=== PATIENT | female | born 1995 | race Two or more races ===

== ENCOUNTER 2017-01-07 07:41 | Inpatient (IN) | payer OTHER ==
[2017-01-07 07:59] VITALS: BMI 33.2
[2017-01-07] MEDS ORDERED: OXYTOCIN IN LR 500 ML IV ONE ×2 (08:13→08:37)
[2017-01-07] MEDS ORDERED: PUMP TUBING ONE (08:36)
[2017-01-07] MEDS ORDERED: IV START KIT ONE (08:36)
[2017-01-07] MEDS ORDERED: LIDOCAINE 1% (PRES FREE) 30 ML VIAL ONE (08:36)
[2017-01-07] MEDS ORDERED: LIDOCAINE Viscous 2% 15 ML UDCUP ONE (08:36)
[2017-01-07] MEDS ORDERED: OXYTOCIN 10 UNITS/ML VIAL ONE (08:36)
[2017-01-07] MEDS ORDERED: LACTATED RINGERS 1,000 ML ONE ×2 (08:36→10:12)
[2017-01-07] MEDS ORDERED: MINERAL OIL 25 ML BOT ONE (08:36)
[2017-01-07 09:44] LABS: HEMATOCRIT 40.5 % (37.0-47.0); HEMOGLOBIN 13.8 gm/l (12.0-16.0); MEAN CELL VOLUME 89.2 fl (81.0-99.0); MEAN CORPUSCULAR HEMOGLOBIN 30.4 pg (27.0-31.0); MEAN CORPUSCULAR HGB CONC 34.1 g/dl (33.0-37.0); RED CELL DISTRIBUTION WIDTH 12.5 % (11.5-14.5)
[2017-01-07] MEDS: LACTATED RINGERS 1,000 ML IV SCH ×3 (09:56→13:55)
[2017-01-07] MEDS ORDERED: FENTANYL/ROPIVACAINE EPIDURAL 250 ML EP ONE (10:12)
[2017-01-07] MEDS ORDERED: EPIDURAL PUMP SET ONE (10:12)
[2017-01-07] MEDS ORDERED: EPIDURAL PROCEDURE TRAY ONE (10:17)
[2017-01-07] MEDS ORDERED: BUPIVACAINE 0.25% (PRES FREE) 30 ML VIAL ONE (10:17)
[2017-01-07] MEDS ORDERED: EPHEDRINE SULFATE 50 MG/ML 1ML VIAL IV PRN (10:20)
[2017-01-07] MEDS ORDERED: DIPHENHYDRAMINE HCL 50 MG/1 ML VIAL IV PRN (10:20)
[2017-01-07] MEDS ORDERED: NALBUPHINE HCL 20 MG/ML AMP IV PRN (10:20)
[2017-01-07] MEDS ORDERED: SODIUM CHLORIDE 0.9% 500 ML IV PRN (10:20)
[2017-01-07] MEDS ORDERED: FENTANYL/ROPIVACAINE EPIDURAL 250 ML EP SCH (10:20)
[2017-01-07] MEDS ORDERED: LACTATED RINGERS 500 ML IV PRN (10:20)
[2017-01-07] MEDS ORDERED: LACTATED RINGERS 1,000 ML IV SCH (10:20)
[2017-01-07] MEDS ORDERED: ONDANSETRON 4 MG/2ML 2 ML VIAL IV PRN (10:20)
[2017-01-07] MEDS ORDERED: METOCLOPRAMIDE HCL 5 MG/ML 2ML VIAL IV PRN (10:20)
[2017-01-07] MEDS ORDERED: NALOXONE HCL 0.4 MG/ML VIAL IV PRN (10:20)
--- NOTE | 2017-01-07 11:56 | PCMAN ---
OB Admission Note - History : 2 Term: 1 : 0 Abortions (S&E): 0 Livin Gestational Age (weeks): 39 Days (#/7): 5 Admit Cervical Dilation:: 5 Admit Cervical Effacement (%):: 75 Admit Station:: -2 Admit Presentaton:: vertex Membrane Status: Intact Labor Onset (Date): 01/07/17 Labor Onset (Time): 04:00 Contractions: Yes Contraction Frequency:: 3 minutes Heart Rate:: 130 (mod favian/+accels/no decels) Status:: Cat1 EFW:: 7# Summary of Course:: Uncomplicated course. Abnormal 1h gtt, normal 3h gtt. Dating Hx: us 08/07/16 17w6d, RUBEN 01/09/17 us 08/31/16 21w1d, normal anatomy scan RUBEN 01/10/17 OBHx: 2012 @ term, [id number] PMH: none PSurgHx: none SH: denies x 3 - Labs Blood Type: O (+) positive Rubella Status: Immune GBS Status: Negative Abnormal Labs: None - Review of Systems +ctx, no LOF, VB, +FM - Physical Exam General: Afebrile Psych/Mental Status: Mood/Affect Appropriate Neurological: Grossly Intact, Alert HEENT: Atraumatic, EOMI Lungs: Clear to Auscultation Bilaterally, Normal Air Movement Cardiovascular: Regular Rate and Rhythm, Normal S1, Normal S2, No Murmur - Problems (1) Active labor at term Status: Acute Code: [id number]/Plan: 21 yo @ 39w5d, redated by 17 week u/s, admitted in labor. 1. Labor: continue expectant management. Consider AROM if no cervical change 2. FWB: cat 1 3. Pain: desires epidural 4. GBS neg 5. BCM: considering IUD
--- NOTE | 2017-01-07 18:45 | PCMDEL ---
Delivery Note - Labor 1st stage (hr/min):: 14h9m 2nd stage (hr/min):: 6m 3rd stage (hr/min):: 6m Total (hr/min):: 14h21m Pushed (hr/min):: 1m - Delivery Delivery (Date): 01/07/17 Delivery (Time): 18:15 Infant Gender: Female Presentation: Cephalic Position: OA Umbilical Cord: 3 Vessel Delayed Cord Clamping:: < 1-2 min 1 Minute Total: 9 5 Minute Total: 9 Placenta:: intact EBL:: 300cc Perineum:: intact Suture:: none Anesthesia/Meds:: epidural Length ROM:: 7h20m Comments:: Uncomplicated over intact perineum with assistance of Dr. [place]in. Head/ shoulders easily delivered, infant placed on maternal abdomen with vigorous cry. Cord clamping delayed by 1 minutes, cut by FOB. Placenta delivered intact, 3VC. No perineal lacs. Hemostasis confirmed with fundal massage. Cord blood collected from placenta after delivery. EBL 300cc.
[2017-01-07] MEDS ORDERED: DOCUSATE SODIUM 100 MG CAPSULE PO PRN (18:51)
[2017-01-07] MEDS ORDERED: BENZOCAINE/MENTHOL 60 APPLIC/BOT TP PRN (18:51)
[2017-01-07] MEDS ORDERED: OXYCODONE HCL 5 MG TABLET PO PRN (18:51)
[2017-01-07] MEDS ORDERED: HYDROCODONE/ACETAMINOPHEN 5/325MG TABLET PO PRN (18:51)
[2017-01-07] MEDS ORDERED: LANOLIN 50 APPLIC/7G TUBE TP PRN (18:51)
[2017-01-07] MEDS: IBUPROFEN 600 MG TABLET PO PRN (23:59)
[2017-01-08 06:51] LABS: HEMATOCRIT 32.1 % (37.0-47.0); HEMOGLOBIN 10.9 gm/l (12.0-16.0)
[2017-01-08] MEDS: IBUPROFEN 600 MG TABLET PO PRN (07:43)
--- NOTE | 2017-01-08 12:27 | PDOC44 ---
- Subjective Reports Flatus, Reports Pain Tolerable, Reports , Reports Lochia Light, Reports Tolerating Regular Diet, Denies Nausea, Denies Vomiting - Objective Temp Pulse Resp BP Pulse Ox 97.9 F 69 14 108/68 01/08/17 07:56 01/08/17 07:56 01/08/17 07:56 01/08/17 07:56 Lab Results 01/08/17 06:20 Hgb 10.9 L D Hct 32.1 L Current Medications Generic Name Dose Route Start Last Admin Trade Name Freq PRN Reason Stop Dose Admin Acetaminophen/Hydrocodone Bitart 1 - 2 tab 01/07/17 18:51 [place] 5/325 PO Q4H PRN Pain (Moderate) Benzocaine/Menthol 1 applic 01/07/17 18:51 Dermoplast TP PRN PRN Patient Comfort Docusate Sodium 100 mg 01/07/17 18:51 Colace PO DAILY PRN Comfort Emollient Ointment 1 applic 01/07/17 18:51 [id number] TP PRN PRN sore nipples Ibuprofen 600 mg 01/07/17 18:51 01/08/17 07:43 Motrin PO 600 mg Q6H PRN Administration Pain (Mild) Oxycodone HCl 5 - 10 mg 01/07/17 18:51 Roxicodone PO Q3H PRN Pain (Severe) Sodium Chloride 10 ml 01/07/17 18:51 Normal Saline 10ml Flush IV PRN PRN IV Flush Sodium Chloride 10 ml 01/08/17 01:00 01/08/17 04:30 Normal Saline 10ml Flush IV Not Given Q8HR MONIQUE - Physical Exam General: Afebrile, No Acute Distress Psych/Mental Status: Mood/Affect Appropriate, Bonding Well Lungs: Clear to Auscultation Bilaterally Cardiovascular: Regular Rate and Rhythm, No Murmur Breast: Soft, Skin intact Fundus: Firm, Midline, At Umbilicus Extremities: Edema (1+ in BLE.), No Tenderness Skin: Warm, Dry, No Rash - Problems:Assessment/Plan (1) Vaginal delivery Status: AcuteAssessment/Plan: Doing well. A/W breast feeding. Disposition: Stable, Anticipate DC Home Tomorrow
[2017-01-09 08:22] VITALS: BP 112/70
--- NOTE | 2017-01-09 09:39 | PDOC44 ---
- Subjective Day: 2 Patient reports pain controlled, declined Rx for Ibuprofen for discharge. Ready to go home today. She is . Denies dizziness. Tolerating PO. Reports Pain Tolerable, Reports , Reports Lochia Light, Reports Tolerating Regular Diet, Denies Nausea, Denies Vomiting - Objective Temp Pulse Resp BP Pulse Ox 98.2 F 73 16 112/70 01/09/17 08:17 01/09/17 08:17 01/09/17 03:01 01/09/17 08:17 Current Medications Generic Name Dose Route Start Last Admin Trade Name Freq PRN Reason Stop Dose Admin Acetaminophen/Hydrocodone Bitart 1 - 2 tab 01/07/17 18:51 [place] 5/325 PO Q4H PRN Pain (Moderate) Benzocaine/Menthol 1 applic 01/07/17 18:51 Dermoplast TP PRN PRN Patient Comfort Docusate Sodium 100 mg 01/07/17 18:51 01/08/17 14:34 Colace PO 100 mg DAILY PRN Administration Comfort Emollient Ointment 1 applic 01/07/17 18:51 [id number] TP PRN PRN sore nipples Ibuprofen 600 mg 01/07/17 18:51 01/08/17 07:43 Motrin PO 600 mg Q6H PRN Administration Pain (Mild) Oxycodone HCl 5 - 10 mg 01/07/17 18:51 Roxicodone PO Q3H PRN Pain (Severe) Sodium Chloride 10 ml 01/07/17 18:51 Normal Saline 10ml Flush IV PRN PRN IV Flush Sodium Chloride 10 ml 01/08/17 01:00 01/08/17 15:05 Normal Saline 10ml Flush IV Not Given Q8HR MONIQUE - Physical Exam General: Afebrile, No Acute Distress Psych/Mental Status: Mood/Affect Appropriate, Bonding Well Neurological: Alert, Normal Speech Lungs: Clear to Auscultation Bilaterally, Normal Air Movement Cardiovascular: Regular Rate and Rhythm, Normal S1, Normal S2 Fundus: Firm, Midline Extremities: Full ROM, No Edema, No Tenderness Skin: Normal Color, Warm, Dry, Intact, No Rash - Problems:Assessment/Plan (1) Vaginal delivery Status: AcuteAssessment/Plan: Doing well. Ready for discharge home Will follow up with PCP in 6 weeks Declined Rx for Ibuprofen Disposition: Stable, Anticipate DC to Home
== END 2017-01-09 12:15 | disposition home or self-care (01) | DRG 775 ==
LOC: FBCOUT 07:41 → FBC 07:41 → FBCOUT 08:11 → FBC 08:11
PROVIDERS: ADMIT Family Medicine; ATTEND Family Medicine
PROC: 10E0XZZ Delivery of Products of Conception, External Approach (ICD-10-PCS; principal; 2017-01-07)
PROC: 00HU33Z Insertion of Infusion Device into Spinal Canal, Percutaneous Approach (ICD-10-PCS; 2017-01-07)
DX: O80 Encounter for full-term uncomplicated delivery (principal); Z3A.39 39 weeks gestation of pregnancy; Z37.0 Single live birth